=== PATIENT | male | born 1975 | race Two or more races ===

== ENCOUNTER 2018-04-29 12:05 | Emergency (ER) | payer BC ==
[~2018-04-29] VITALS: Ht 177.8 cm; Wt 74.8 kg
[2018-04-29 12:27] VITALS: BP 137/76; Ht 177.8 cm; Wt 74.8 kg
== END 2018-04-29 14:20 | disposition home or self-care (01) ==
LOC: ED 12:05
DX: L03.116 Cellulitis of left lower limb (principal)